=== PATIENT | female | born 1950 | race Caucasian/White ===

== ENCOUNTER → 2018-07-01 | Day surgery (SDC) | payer OTHER ==
[~2018-07-01] MED LIST: ATACAND16 MG PO; BONIVA150 MG PO; EMBREL; FAMOTIDINE40 MG PO; MOBIC15 MG PO; PEDIAPRED5 MG/5 ML PO; PROTONIX40 MG PO
== END | disposition home or self-care (01) ==
LOC: ADM 06-26 11:00 → CIR.AMB 06:10
DX: M19.031 Primary osteoarthritis, right wrist (principal); M13.841 Other specified arthritis, right hand
CPT/HCPCS: 25441; 25447; C1776